=== PATIENT | male | born 1985 | race Caucasian/White ===

== ENCOUNTER 2020-09-30 08:09 | Emergency (ER) | payer OTHER ==
[~2020-09-30] VITALS: Ht 175.3 cm; Wt 74.8 kg
[~2020-09-30 08:09] MED LIST: ACET500 PO; ACYC800 PO; AMOX500 PO; CRUTCH USE; GUAI600T33; HYDACE5 PO; IBUP200; IBUP600 PO; IBUP800 PO; OXYACE5T PO; PROM25 PO; RXCLIN PO; TYLENOL COLD; Vibramycin100 MG PO; ZINC15G
[2020-09-30] MEDS ORDERED: OXYC5 PO (09:12)
[2020-09-30] MEDS ORDERED: AMOCLA875 PO (09:12)
== END 2020-09-30 09:20 | disposition home or self-care (01) ==
LOC: ER 08:09
DX: K04.7 Periapical abscess without sinus (principal); F17.210 Nicotine dependence, cigarettes, uncomplicated
CPT/HCPCS: 99282

== ENCOUNTER 2021-02-02 20:28 | Emergency (ER) | payer OTHER ==
[~2021-02-02] VITALS: Ht 177.8 cm; Wt 77.1 kg
[~2021-02-02 20:28] MED LIST changes: +AMOCLA875 PO; +OXYC5 PO
[2021-02-02] MEDS ORDERED: IBUP800 PO (22:19)
== END 2021-02-02 22:45 | disposition home or self-care (01) ==
LOC: ER 20:28
DX: S09.90XA Unspecified injury of head, initial encounter (principal); S43.102A Unspecified dislocation of left acromioclavicular joint, initial encounter; S52.502A Unspecified fracture of the lower end of left radius, initial encounter for closed fracture; F17.210 Nicotine dependence, cigarettes, uncomplicated; V03.99XA Pedestrian with other conveyance injured in collision with car, pick-up truck or van, unspecified whether traffic or nontraffic accident, initial encounter; Y92.410 Unspecified street and highway as the place of occurrence of the external cause
CPT/HCPCS: 29125; 70450; 73030; 73070; 73100; 73120; 73610; 86850; 86900; 86901; 96374; 99285-25; A9270; J1885

== ENCOUNTER 2021-05-12 18:49 | Emergency (ER) | payer OTHER ==
[~2021-05-12] VITALS: Ht 175.3 cm; Wt 76.2 kg
[2021-05-15 03:11] LABS: CHLAMYDIA TRACHOMATIS, NAA Negative (Negative)
== END 2021-05-12 20:04 | disposition home or self-care (01) ==
LOC: ER 18:49
PROVIDERS: Physician Assistant
DX: R39.9 Unspecified symptoms and signs involving the genitourinary system (principal); F17.210 Nicotine dependence, cigarettes, uncomplicated
CPT/HCPCS: 87491; 87591; 99283

== ENCOUNTER 2021-09-04 01:01 | Emergency (ER) | payer OTHER | END 2021-09-04 01:30 | disposition left against medical advice (07) | LOC: ER 01:01 | DX: Z53.21 Procedure and treatment not carried out due to patient leaving prior to being seen by health care provider (principal) ==

== ENCOUNTER 2021-10-05 01:46 | Emergency (ER) | payer OTHER ==
[~2021-10-05] VITALS: Ht 175.3 cm; Wt 79.4 kg
[2021-10-05] MEDS ORDERED: Vibramycin100 MG PO (02:36)
== END 2021-10-05 02:53 | disposition home or self-care (01) ==
LOC: ER 01:46
DX: Z11.3 Encounter for screening for infections with a predominantly sexual mode of transmission (principal); F17.210 Nicotine dependence, cigarettes, uncomplicated
CPT/HCPCS: 96372; 99283-25; A9270; J0696

== ENCOUNTER 2022-01-18 15:39 | Emergency (ER) | payer OTHER ==
[~2022-01-18] VITALS: Ht 175.3 cm; Wt 74.8 kg
== END 2022-01-18 17:47 | disposition home or self-care (01) ==
LOC: ER 15:39
DX: Z20.2 Contact with and (suspected) exposure to infections with a predominantly sexual mode of transmission (principal); F17.210 Nicotine dependence, cigarettes, uncomplicated
CPT/HCPCS: J0561

== ENCOUNTER 2022-07-14 06:54 | Emergency (ER) | payer OTHER ==
[~2022-07-14] VITALS: Ht 175.3 cm; Wt 72.6 kg
[2022-07-14] MEDS ORDERED: SULTRIDS PO (08:47)
== END 2022-07-14 08:55 | disposition home or self-care (01) ==
LOC: ER 06:54
DX: L02.414 Cutaneous abscess of left upper limb (principal); L03.114 Cellulitis of left upper limb; F17.210 Nicotine dependence, cigarettes, uncomplicated
CPT/HCPCS: 76882

== ENCOUNTER 2022-07-29 03:44 | Emergency (ER) | payer OTHER ==
[~2022-07-29] VITALS: Ht 175.3 cm; Wt 74.8 kg
[~2022-07-29 03:44] MED LIST changes: +SULTRIDS PO
[2022-07-29] MEDS ORDERED: DOXY100 PO (04:23)
[2022-07-29 04:46] LABS: Appearance, Urine Hazy (Clear); Bilirubin, Urine Neg (Neg); Blood, Urine 1+ (Neg); Color, Urine Yellow (P-Yellow); Glucose Qualitative, Urine Neg (Neg); Ketones, Urine Neg (Neg); Leukocyte Esterase, Urine 3+ (Neg); Nitrite, Urine Neg (Neg); Protein, Urine 2+ (Neg); Source, Urine Clean Catch; Specific Gravity, Urine 1.025 (1.003-1.022); Urobilinogen, Urine NORM (Normal)
[2022-07-29 05:03] LABS: White Blood Cells, Urine 25-50 /hpf (0-5)
[2022-07-29 05:05] LABS: Bacteria Mod /hpf; Mucus Light (0-Heavy); Squamous Epithelial Cells Rare /hpf (Few)
[2022-07-31 01:11] LABS: CHLAMYDIA TRACHOMATIS, NAA Negative (Negative)
== END 2022-07-29 06:21 | disposition home or self-care (01) ==
LOC: ER 03:44
PROVIDERS: Emergency Medicine
DX: N45.1 Epididymitis (principal); N34.2 Other urethritis; F17.210 Nicotine dependence, cigarettes, uncomplicated
CPT/HCPCS: 81001; 87086; 87491; 87591; A9270; J0696

== ENCOUNTER 2023-04-15 04:06 | Emergency (ER) | payer OTHER ==
[~2023-04-15] VITALS: Ht 177.8 cm; Wt 72.6 kg
[~2023-04-15 04:06] MED LIST changes: +DOXY100 PO
[2023-04-15 04:29] VITALS: BP 158/102
== END 2023-04-15 08:12 | disposition home or self-care (01) ==
LOC: ER 04:06
DX: Z11.3 Encounter for screening for infections with a predominantly sexual mode of transmission (principal); F17.210 Nicotine dependence, cigarettes, uncomplicated
CPT/HCPCS: 99283